=== PATIENT | female | born 1995 | race Two or more races ===

== ENCOUNTER 2016-07-22 17:18 | Emergency (ER) | payer MEDICAID ==
[~2016-07-22] VITALS: Ht 162.6 cm; Wt 48.5 kg
[2016-07-22 17:29] VITALS: BP 122/78
[2016-07-22] MEDS ORDERED: IBUPROFEN 800 MG TAB PO ONE (19:15)
== END 2016-07-22 20:01 | disposition home or self-care (01) ==
LOC: EDBD 17:18 → ER 17:22
DX: S02.2XXA Fracture of nasal bones, initial encounter for closed fracture (principal); S60.221A Contusion of right hand, initial encounter; V43.02XA Car driver injured in collision with other type car in nontraffic accident, initial encounter; Y93.89 Activity, other specified; Y92.89 Other specified places as the place of occurrence of the external cause; Y99.8 Other external cause status
CPT/HCPCS: 70160